=== PATIENT | female | born 1980 | race Caucasian/White ===

== ENCOUNTER 2018-03-31 13:48 | Emergency (ER) | payer OTHER ==
[2018-03-31 14:00] VITALS: BP 99/66
--- NOTE | 2018-03-31 14:45 | UC ---
Skin Complaint HPI - HPI Summary HPI Summary: 37 y/o female presents to the urgent care c/o a circular rash in her abdomen for the past 3 months. Pt states she does a lot of aerobics exercise and sometimes swims. She though it was ringworm but it has not responded to OTC medication. Sometimes it fades and other times increases in size. It itches. Pt denies fever, Hx of tick bites, BRENNAN, joint pain, abdominal pain. SOB, URI, N/V/ D. - History of Current Complaint Chief Complaint: UCRash Time Seen by Provider: 03/31/18 14:44 Stated Complaint: RASH Hx Obtained From: Patient Hx Last Menstrual Period: hyster ?: No Onset/Duration: Gradual Onset, Lasting Weeks - 3 months, Still Present Skin Exposure Onset/Duration: Weeks Ago - 3 months ago Timing: Constant Onset Severity: Mild Current Severity: Mild Pain Intensity: 0 Pain Scale Used: 0-10 Numeric Location: Discrete - mid abdomen above the umbilicus Character: Pruritus Aggravating Factor(s): Humidity, Touch Alleviating Factor(s): Nothing Associated Signs & Symptoms: Positive: Rash - in the mid abdomen w/ itchiness. Negative: Fever, Chills, Tenderness Related History: Possible Reaction to: Environmental Exposure - Allergy/Home Medications Allergies/Adverse Reactions: Allergies Allergy/AdvReac Type Severity Reaction Status Date / Time No Known Allergies Allergy Verified 03/31/18 14:00 Home Medications: Home Medications Calcium Carbonate [Calcium] 1 tab PO DAILY 03/31/18 [History Confirmed 03/31/18] Vit C/Ascorb Sod/Multivit-Min [Emergen-C 500 mg Chewable Tab] 1 tab PO DAILY [History Confirmed 03/31/18] PMH/Surg Hx/FS Hx/Imm Hx Previously Healthy: Yes Other GI/ History: adenomyosis resolved w/ hysterectomy - Surgical History Surgical History: Yes Surgery Procedure, Year, and Place: hysterrectomy for adenomyosis; laparacopy - Family History Known Family History: Positive: None - Pt denies FMHX - Social History Occupation: Employed Full-time Lives: With Family Alcohol Use: Occasionally Substance Use Type: None Smoking Status (MU): Never Smoked Tobacco Review of Systems All Other Systems Reviewed And Are Negative: Yes Constitutional: Positive: Negative Skin: Positive: Rash - ring rash above the umbilicus for the past 3 months w/ itchiness Eyes: Positive: Negative ENT: Positive: Negative Respiratory: Positive: Negative Cardiovascular: Positive: Negative Gastrointestinal: Positive: Negative Genitourinary: Positive: Negative Motor: Positive: Negative Neurovascular: Positive: Negative Musculoskeletal: Positive: Negative Neurological: Positive: Negative Psychological: Positive: Negative Is Patient Immunocompromised?: No Physical Exam - Summary Physical Exam Summary: Vital Signs Reviewed: Yes General: well appearing, well nourished female in no acute apparent pain distress, sitting comfortably on examining table Eye Exam: Normal Eyes: Positive: Conjunctiva Clear - PERRLA< EOMI, fundi grossly normal ENT: Positive: Normal ENT inspection, Hearing grossly normal, Pharynx normal, TMs normal Neck: Positive: Supple, Nontender, No Lymphadenopathy Respiratory: Positive: Chest non-tender, Lungs clear, Normal breath sounds, No respiratory distress Cardiovascular: Positive: RRR, No Murmur, Pulses Normal, Brisk Capillary Refill Abdomen Description: Positive: Nontender, No Organomegaly, Soft. Negative: CVA Tenderness (R), CVA Tenderness (L) Bowel Sounds: Positive: Present Musculoskeletal: Positive: Strength Intact, ROM Intact, No Edema Neurological: Positive: Alert, Muscle Tone Normal Psychological Exam: Normal Skin: Positive: mid abdomen above the umbilicus with an erythematous round scaling lesion with a central clearance and raised borders about 4cm x 5cm in size. Triage Information Reviewed: Yes Vital Signs: Initial Vital Signs Temp 98 F 03/31/18 13:58 Pulse 59 03/31/18 13:58 Resp 18 03/31/18 13:58 BP 99/66 03/31/18 13:58 Pulse Ox 100 03/31/18 13:58 Course/Dx - Course Course Of Treatment: 37 y/o female presents to the urgent care c/o a circular rash in her abdomen for the past 3 months. Pt states she does a lot of aerobics exercise and sometimes swims. She though it was ringworm but it has not responded to OTC medication. Sometimes it fades and other times increases in size. It itches. Pt denies fever, Hx of tick bites, BRENNAN, joint pain, abdominal pain. SOB, URI, N/V/D. Hx obtained. Pt w/mid abdomen above the umbilicus with an erythematous round scaling lesion with a central clearance and raised borders about 4cm x 5cm in size on examination. Pt Rx Lamisil topical cream to alleviate symptoms. Pt advised if not improvement or worsening of symptoms to f/u with PCP or [employer] [facility] Oneill for further treatment.PT understood and agreed with D/C instructions. - Differential Diagnoses - Skin Complaint Differential Diagnoses: Abscess, Contact Dermatitis, Local Allergic Reaction, MRSA, Poison Nicole, Poison Bogue, Tinea, Varicella Zoster - Diagnoses Provider Diagnosis: Tinea corporis Discharge - Sign-Out/Discharge Documenting (check all that apply): Patient Departure - d/c home All imaging exams completed and their final reports reviewed: No Studies - Discharge Plan Condition: Stable Disposition: HOME Prescriptions: Terbinafine [Lamisil Advanced] 1 % EX BID #1 gel Patient Education Materials: Tinea Corporis (ED) Referrals: Tiffany Oneill [Medical Doctor] - 1 Week Jen Sue MD [Primary Care Provider] - 1 Week Additional Instructions: 1-Please apply medication as directed. Keep area dry avoid humidity 2-If symptoms do not improve or worsen please f/u [employer] Dr Oneill for further evaluation and treatment. - Billing Disposition and Condition Condition: STABLE Disposition: Home - Attestation Statements Provider Attestation: I was available for consult. This patient was seen by the [facility]. The patient was not presented to, seen by, or examined by me. -Annabella
== END 2018-03-31 15:29 | disposition home or self-care (01) ==
LOC: UCEAST 13:48
DX: B35.4 Tinea corporis (principal)
CPT/HCPCS: 99202; G0463

== ENCOUNTER 2019-03-28 08:19 | Emergency (ER) | payer MEDICAID, OTHER ==
[2019-03-28 08:37] VITALS: BP 116/78
--- NOTE | 2019-03-28 09:13 | UC ---
Skin Complaint HPI - HPI Summary HPI Summary: Patient presents to urgent care for evaluation of a rash on her face pain patient states has been waxing and waning for the last 3-4 days. Patient states at times very very itchy. Patient denies any drainage. No vesicles or blisters. Patient states there is a gentleman that was her house that has impetigo just concerned this could be it. Patient denies any new or different facial products or hygiene products. Patient has not put anything on it other than some chlorhexidine rinse when it's at its worst. Patient states this seems to help. Patient without any facial swelling difficulty breathing tongue swelling. states markedly worse following shower. Patient without any nausea or vomiting. Denies any new foods. No new or different chemicals. Patient does work full-time with horses. Patient states she is not . Patient denies any new or different [id number] medications. No peripheral supplement. Patient's medications as entered in the EMR by triage was reviewed this visit. - History of Current Complaint Chief Complaint: UCSkin Time Seen by Provider: 03/28/19 09:03 Stated Complaint: SKIN ISSUE Hx Obtained From: Patient Hx Last Menstrual Period: hyster ?: No Onset Severity: Mild Current Severity: None Pain Intensity: 0 - Allergy/Home Medications Allergies/Adverse Reactions: Allergies Allergy/AdvReac Type Severity Reaction Status Date / Time No Known Allergies Allergy Verified 03/28/19 08:29 Home Medications: Home Medications L.acidoph,Paracasei, B.lactis [Probiotic] 1 each PO DAILY 03/28/19 [History Confirmed 03/28/19] PMH/Surg Hx/FS Hx/Imm Hx Previously Healthy: Yes - Surgical History Surgical History: Yes Surgery Procedure, Year, and Place: hysterrectomy for adenomyosis - Family History Known Family History: Positive: Non-Contributory - Social History Occupation: Employed Full-time Lives: With Family Alcohol Use: None Substance Use Type: None Smoking Status (MU): Never Smoked Tobacco Review of Systems All Other Systems Reviewed And Are Negative: Yes Skin: Positive: Rash Physical Exam - Summary Physical Exam Summary: Vital Signs Reviewed: Yes A+Ox3, no distress Eyes: Conjunctiva Clear, ISAAC, EOM intact and full ENT: Hearing grossly normal, TM x 2 clear turbinates wnl mmmoist no exudate, no erythema neck: supple Respiratory: Positive: No respiratory distress, No accessory muscle use CTA throughout no w/r Cardiovascular: skin color reflect adequate perfusion RRR nl s1, s2 no m/r Musculoskeletal Exam: BARROW x 4 without difficulty Neurological: Positive: Alert, ambulatory without difficulty Psychological: Positive: Normal Response To examiner Skin: Positive: pt with faint apparent hives on chin and bilatera lower cheeks no vesicles, drainage no lesions elsewhere, no erythema Triage Information Reviewed: Yes Vital Signs: Initial Vital Signs Temp 98.7 F 03/28/19 08:30 Pulse 69 03/28/19 08:30 Resp 16 03/28/19 08:30 BP 116/78 03/28/19 08:30 Pulse Ox 99 03/28/19 08:30 Course/Dx - Course Course Of Treatment: Patient presents to urgent care for evaluation of a rash on her face. Patient states symptoms get worse when she gets out of the shower. Patient states at times they look very blotchy on her chest and her very itchy. Other times very subdued. Patient states she's been washed with chlorhexidine that seems to have helped. Patient denies any drainage crust or discharge. Patient has history of similar. No pills at home with similar lesions however there is some of the house with impetigo. Patient denies any new or different exposures or foods. On exam vital signs are stable. Patient with panel appearing hives to her chin and bilateral cheeks. Not not raised or indurated. No vesicles. Discussed with patient weight. Suspect likely hives. Recommended cool packs. Prednisone. Pepcid. Benadryl for bedtime. We'll give referral to dermatology. Low suspicion for impetigo or return precautions discussed. Patient comfortable in agreement with plan of care. - Diagnoses Provider Diagnosis: Rash Discharge ED - Sign-Out/Discharge Documenting (check all that apply): Patient Departure All imaging exams completed and their final reports reviewed: No Studies - Discharge Plan Condition: Stable Disposition: HOME Prescriptions: predniSONE TAB* [Deltasone 20 MG TAB*] 20 mg PO DAILY #13 tab Sulfamethox/Trimethoprim SS* [Bactrim SS 400/80 TAB*] 1 tab PO BID #14 tab Patient Education Materials: Acute Rash (ED) Referrals: [facility] Dermatology [Provider Group] Jen Sue MD [Primary Care Provider] - Additional Instructions: - Take prednisone exactly as prescribed until gone - starting today - Okay to take Benadryl (1-2 tablets) every 6 hours as needed. This medication may cause drowsiness - do NOT drive, operate machinery or drink alcohol while taking Benadryl. Alternatively, you can use bendaryl cream -Avoid getting over heated (hot showers, hot tubs, exercise) for at least 48 hours - Try to avoid aspirin, NSAIDs (Motrin, Aleve, Naprosyn) for 2-3 days - If your symptoms persist or worse, okay to start antibiotics as prescribed - Contact the [facility]oft consultant to schedule a follow-up appointment - if you have questions or concerns, contact your primary or return here - Billing Disposition and Condition Condition: STABLE Disposition: Home
== END 2019-03-28 09:40 | disposition home or self-care (01) ==
LOC: UCEAST 08:19
DX: R21 Rash and other nonspecific skin eruption (principal)
CPT/HCPCS: 99212; G0463